=== PATIENT | female | born 1945 | race Caucasian/White ===

== ENCOUNTER → 2017-08-05 | Outpatient (CLI) | payer MEDICARE, OTHER ==
[~2017-08-05] MED LIST: ALEV220T14 PO; ASPI-183 PO; ATOR20TA15 PO; DORZ2SOL15 RIGHT EYE; DOXY50 PO; FLUT50SP EACH NARE; FOLI1TAB6 PO; IBUP200T47 PO; LACTCAP8 PO; LEFL1TAB3 PO; MELO15TA20 PO; METR28.4 TOPICAL; OMEP20TA93 PO; POTA10TA2 PO; SERO50TA PO; SERT-129 PO; VALS320T4 PO
[2017-08-05 12:09] LABS: AUTOMATED NEUTROPHIL # 3.7 TH/MM3 (1.8-7.7); BASOPHIL % 0.5 % (0.0-2.0); EOSINOPHIL # 0.3 TH/MM3 (0-0.4); EOSINOPHIL % 5.1 % (0.0-4.0); HEMATOCRIT 42.5 % (35.0-46.0); HEMOGLOBIN 14.6 GM/DL (11.6-15.3); LYMPH % 17.8 % (9.0-44.0); MEAN CELL VOLUME 98.5 FL (80.0-100.0); MEAN CORPUSCULAR HEMOGLOBIN 33.8 PG (27.0-34.0); MEAN CORPUSCULAR HGB CONC 34.4 % (32.0-36.0); MEAN PLATELET VOLUME 9.7 FL (7.0-11.0); MONO % 9.1 % (0.0-8.0); MONOCYTE # 0.5 TH/MM3 (0-0.9); NEUT % 67.5 % (16.0-70.0); PLATELET COUNT 125 TH/MM3 (150-450); RED BLOOD COUNT 4.32 MIL/MM3 (4.00-5.30); RED CELL DISTRIBUTION WIDTH 12.9 % (11.6-17.2); WHITE BLOOD COUNT 5.5 TH/MM3 (4.0-11.0)
[2017-08-05 12:20] LABS: BILIRUBIN, URINE NEG (NEG); BLOOD, URINE NEG (NEG); GLUCOSE,URINE NEG (NEG); KETONE, URINE NEG (NEG); MUCUS URINE FEW /lpf (OCC); NITRITE,URINE NEG (NEG); SQUAMOUS EPITHELIAL CELL URINE 4 /hpf (0-5); TRANSITIONAL EPI CELLS, URINE 1 /hpf; URINE COLOR YELLOW (YELLW/STRAW); URINE LEUKOCYTE ESTERASE SMALL (NEG)
[2017-08-05 12:38] LABS: ALBUMIN 3.6 GM/DL (3.4-5.0); AST (GOT) 23 U/L (15-37); BICARBONATE 32.7 MEQ/L (21.0-32.0); BLOOD UREA NITROGEN 14 MG/DL (7-18); CALCIUM 9.2 MG/DL (8.5-10.1); CHLORIDE 105 MEQ/L (98-107); CREATININE 0.76 MG/DL (0.50-1.00); GLOMERULAR FILTRATION RATE 75 ML/MIN (>89); GLUCOSE,FASTING 102 MG/DL (74-99); SODIUM (NA) 142 MEQ/L (136-145)
[2017-08-05 12:39] LABS: ALT (GPT) 26 U/L (10-53)
[2017-08-05 12:42] LABS: ALKALINE PHOSPHATASE 115 U/L (45-117); TOTAL BILIRUBIN ADULT 0.4 MG/DL (0.2-1.0); TOTAL PROTEIN 7.5 GM/DL (6.4-8.2)
--- NOTE | 2017-08-06 23:14 | EKG ---
Date Performed: 08/05/2017 Time Performed: 11:32:12 PTAGE: 71 years EKG: Sinus rhythm NORMAL ECG NO PREVIOUS TRACING DOCTOR: Jocelyn Thorne Interpretating Date/Time 08/06/2017 23:14:32
== END ==
LOC: CPRE 11:12
PROVIDERS: ATTEND Obstetrics & Gynecology Gynecology
DX: Z01.810 Encounter for preprocedural cardiovascular examination (principal); Z01.812 Encounter for preprocedural laboratory examination; R32 Unspecified urinary incontinence
CPT/HCPCS: 36415; 80053; 81001; 85025; 87086; 93005

== ENCOUNTER → 2017-08-13 | Day surgery (SDC) | payer MEDICARE, OTHER ==
--- NOTE | 2017-08-05 16:16 | MH ---
cc: Nicholas Hansen MD DATE OF ADMISSION: 08/13/2017 DATE OF : 1945 REASON FOR ADMISSION: For a midurethral sling. HISTORY OF PRESENT ILLNESS: The patient is a 71-year-old white female, 3, para 3, who has had issues with stress incontinence. She has had urodynamic studies that showed a leak at approximately 150 mL, which is approximately 1/2 capacity. She had normal pressures. No detrusor instability. She has been given the options for management and treatment and opts for surgery. PAST MEDICAL HISTORY: Notable for anxiety, possible TIA, fibromyalgia, osteoarthritis, glaucoma. SURGICAL HISTORY: Hysterectomy, bilateral hip replacements, history of anterior repair. SOCIAL HISTORY: . Good social support. No alcohol, tobacco, caffeine. OB HISTORY: Three vaginal deliveries. STUDENT LIFE COORDINATOR HISTORY: No STDs or abnormal Pap smears. Hysterectomy was for a benign condition. ALLERGIES: MORPHINE causes irritability and anxiety. MEDICATIONS: 1. Atorvastatin 20 mg daily. 2. Meloxicam 15 mg daily. 3. Sertraline 100 mg daily. 4. Losartan./hydrochlorothiazide 1 every day. FAMILY HISTORY: Noncontributory. REVIEW OF SYSTEMS: As above. No chest pain, orthopnea or PND. No nausea, vomiting, fever or chills. No vaginal bleeding or discharge. Remainder of 14-point review is negative. PHYSICAL EXAMINATION: VITAL SIGNS: She is afebrile. Vital signs are stable. Blood pressure is 120/70. Height is 5 feet 2 inches, weight 187. BMI is 35. GENERAL: Alert and oriented, in no acute distress. No sign of cognitive dysfunction or depression. HEENT: Within normal limits. NECK: Supple. No JVD. CHEST: Clear. HEART: Regular rate and rhythm. ABDOMEN: Soft, nontender. No hepatosplenomegaly. No CVA tenderness. PELVIC: Exam in the office shows Aa is -1, Ap is -1. No significant hypermobility, no postvoid residual. Further exam under anesthesia. EXTREMITIES: Normal. SKIN: Without rashes. NEUROLOGIC: Nonfocal. No DVT signs. ASSESSMENT AND PLAN: Patient with stress incontinence with no significant postvoid residual or detrusor instability. The patient does leak at approximately 50% of capacity with relatively moderate capacity of 300 mL. The patient and I discussed at length management options. She is aware of the risks, benefits and alternatives of planned procedure including damage to surrounding organs, bleeding, infection, possibility that the procedure will not provide continence, also the possibility of retention, pain, erosion, dyspareunia are discussed. The patient accepted options and expressed understanding. Anticipate outpatient procedure. We will use DVT prophylaxis with sequential compression device and antibiotic prophylaxis with Ancef 2 grams IV. MD FLOR Auguste/SB , 03:53 PM , 04:15 PM
[~2017-08-13] VITALS: Ht 157.5 cm; Wt 82.8 kg
[~2017-08-13] MED LIST changes: +*RESP: ALBUTEROL 2.5 MG/3 ML NEB (PRN) PERIprocedural Use ONLY NEB ONE; +CHLORHEXIDINE GLUCONATE 2 % 1 PACK (2 CLOTHS) TOPICAL PRN; +DEXAMETHASONE SOD PHOS 4 MG/ML VIAL IV ONE; +DO NOT ADM ANY ANTICOAGULANT DRUGS PRN; +ESTROGENS CONJUGATED VAG CREA 15 APPL/30 GM TUBE ONE; +FAMOTIDINE 20 MG/2 ML VIAL ONE; +FLUORESCEIN SOD 10% SOLN 500 MG/5 ML AMP ONE; +GLYCOPYRROLATE 1 MG/5 ML SYRINGE IV PUSH ONE; +KETOROLAC TROMETHAMINE 30 MG/ML (IVP) VIAL IV PUSH ONE; +KETOROLAC TROMETHAMINE 30 MG/ML (IVP) VIAL IV PUSH PRN; +LACTATED RINGER'S 1000 ML IV PRN; +LIDOCAINE HCL 1% 30 ML VIAL INFIL ONE; +LIDOCAINE HCL 1% PF 5 ML SYRINGE OTHER ONE; +METHYLENE BLUE 10 MG/ML VIAL ONE; +METOPROLOL TARTRATE 25 MG TAB PO PRN; +METOPROLOL TARTRATE 5 MG/5 ML VIAL IV ONE; +ONDANSETRON HCL 4 MG/2 ML VIAL IV ONE; +ONDANSETRON HCL 4 MG/2 ML VIAL IV PUSH PRN; +POVIDONE IODINE 5% (ANTISEPSIS KIT) 4 APPLICATIONS EACH NARE PRN; +PROPOFOL 200 MG/20 ML AMP IV ONE; +ROCURONIUM INJ 50 MG/5 ML SYRINGE IV PUSH ONE; +SODIUM CHLORID 0.9% 500 ML IV PRN; +SUGAMMADEX SODIUM 200 MG/2 ML VIAL IV PUSH ONE; +ceFAZolin 2 GM/DEX PREMIX 50 ML IV SCH; +ePHEDrine/NS 25 MG/5 ML SYRINGE IV ONE
[2017-08-13 11:12] VITALS: BP 136/59; PULSE 83; RESP 16; TEMP 97.7; O2SAT 96
--- NOTE | 2017-08-13 11:36 | MP ---
cc: Nicholas Hansen MD DATE OF OPERATION: 08/13/2017 PREOPERATIVE DIAGNOSIS: Stress urinary incontinence, Code N39.3. POSTOPERATIVE DIAGNOSES: 1. Stress urinary incontinence, code 39.3. 2. Midline cystocele, code N81.11. PROCEDURE: 1. Transobturator mid urethral sling with Lolita Desara polypropylene sling, code 59620. 2. Anterior repair, code 98708. SURGEON: Nicholas Hansen MD. ANESTHESIA: General endotracheal. BLOOD LOSS: 10 mL. URINE OUTPUT: 200 mL prior to case. REGIONAL ACCOUNT MANAGER: [place] for staff x 2. FLUIDS: 1000 mL crystalloid. FINDINGS: External genitalia poorly estrogenized. POP-Q Aa is -1, Ap is -1, point C is -8, total vaginal length is 8, genital hiatus is 4, perineal body is 5. Following repair Aa is -3. Cystoscopy shows normal trigone, good coaptation of the urethra, ureteral orifices patent x 2, dome and base of bladder normal. SPECIMENS: None. COMPLICATIONS: None. DRAINS: Haile catheter. DISPOSITION: To recovery room, stable. DVT PROPHYLAXIS: Sequential compression devices. ANTIBIOTIC PROPHYLAXIS: Ancef 2 grams. TIME-OUT PROCEDURE AND IDENTIFICATION: Per protocol. SUMMARY OF INDICATION FOR THE PROCEDURE: Patient with symptomatic stress urinary incontinence. She had urodynamic testing that showed leak at approximately 50% capacity with no detrusor instability. She has been apprised of the risks, benefits and alternatives and she opted for transobturator sling. PROCEDURE NOTE: The patient was taken to the operating room theater, identified, prepped and draped in the fashion appropriate for the planned procedure. She was in the dorsal supine position with careful attention paid to placement of legs in the stirrups to avoid undue stress to sensitive neurovascular structures. The above findings noted. Neurovascularly integrity documented. Haile catheter was placed. Methylene blue was instilled into the bladder. The obturator space was identified on each side, infiltrated with epinephrine/lidocaine solution. The length of the urethra was identified by palpating the catheter bulb. We then made a midline incision after infiltrating with epinephrine/lidocaine solution. We reflected the mucosa from the urethra, mobilized the urethra without damage and no spill of methylene blue. C-hooks were used to introduced from a lateral to medial position, the tape. The tape was placed to the mid urethra using a scalpel handle as a spacer. The anterior repair was performed in the standard fashion without complication using delayed absorbable suture. The mucosa was closed with a running Vicryl suture and hemostatic matrix was used to obviate the need for packing. There was no buttonholing of the mucosa and the sling was in proper position. Cystoscopy showed a normal trigone, good coaptation of the urethra. Ureteral orifices patent x 2. Dome and base of bladder normal. The patient tolerated the procedure well and went to the recovery in stable condition. MD FLOR Auguste/LIN , 11:15 AM , 11:35 AM
== END | disposition home or self-care (01) ==
LOC: HSDC 06:00 → EDUNIT# 08:00
PROVIDERS: ATTEND Obstetrics & Gynecology Gynecology
DX: N39.3 Stress incontinence (female) (male) (principal); F41.9 Anxiety disorder, unspecified; I10 Essential (primary) hypertension; E78.00 Pure hypercholesterolemia, unspecified; Z90.710 Acquired absence of both cervix and uterus; Z96.643 Presence of artificial hip joint, bilateral
CPT/HCPCS: 00860; 57288; C1771; J0690; J1100; J1885; J2405; J3010; J7613; 94664